=== PATIENT | male | born 1985 | race Caucasian/White ===

== ENCOUNTER 2024-12-21 18:25 | Emergency (ER) | payer OTHER ==
[2024-12-21 18:39] VITALS: BP 156/91; PULSE 88; RESP 18; TEMP 98; O2SAT 99
[2024-12-21] MEDS ORDERED: ZOFRAN ODT ONE (18:57)
[2024-12-21] MEDS ORDERED: NORCO 7.5 PO ONE (18:57)
[2024-12-21] MEDS: ZOFRAN ODT SL STA (19:01)
[2024-12-21] MEDS: NORCO 7.5 PO STA (19:01)
[2024-12-21 19:39] VITALS: BP 154/107; PULSE 89; RESP 18; TEMP 98; O2SAT 98
[2024-12-21 20:04] VITALS: BP 151/105; PULSE 88; RESP 18; TEMP 98; O2SAT 99
[2024-12-21] MEDS ORDERED: TORADOL ONE (20:08)
[2024-12-21] MEDS: TORADOL IM STA (20:11)
== END 2024-12-21 20:13 | disposition home or self-care (01) ==
LOC: ER 18:25
DX: S60.451A Superficial foreign body of left index finger, initial encounter (principal); F12.90 Cannabis use, unspecified, uncomplicated; X58.XXXA Exposure to other specified factors, initial encounter; Y93.89 Activity, other specified; Y92.89 Other specified places as the place of occurrence of the external cause; Y99.8 Other external cause status
CPT/HCPCS: 99284; 96372; 73140; 73130; J1885; J8499